=== PATIENT | male | born 1950 | race Caucasian/White ===

== ENCOUNTER 2022-06-09 13:01 | Outpatient (CLI) | payer MEDICARE | END 2022-06-09 13:02 | disposition home or self-care (01) | LOC: CSHCT 13:01 | PROVIDERS: ATTEND Urology | DX: R94.8 Abnormal results of function studies of other organs and systems (principal); M51.36 Other intervertebral disc degeneration, lumbar region; M51.26 Other intervertebral disc displacement, lumbar region; M48.061 Spinal stenosis, lumbar region without neurogenic claudication; M48.07 Spinal stenosis, lumbosacral region; M25.78 Osteophyte, vertebrae; N32.89 Other specified disorders of bladder | CPT/HCPCS: 72131 ==